=== PATIENT | male | born 1940 | race Caucasian/White ===

== ENCOUNTER → 2017-09-11 | Outpatient (CLI) | payer MEDICARE, BC ==
[~2017-09-11] MED LIST: ASPI-496 PO; OXYC5CAP2 PO; TAMS0.4C2 PO
[2017-09-11 15:47] LABS: HEMATOCRIT 45.2 % (39.2-51.8); HEMOGLOBIN 15.2 g/dL (13.7-18.0); WHITE BLOOD COUNT 4.8 x10^3/uL (3.4-10)
[2017-09-11 16:02] LABS: BLOOD UREA NITROGEN 30 mg/dL (7-18)
== END | disposition home or self-care (01) ==
LOC: STAR 14:51
PROVIDERS: ATTEND Orthopaedic Surgery
DX: Z01.818 Encounter for other preprocedural examination (principal); M17.12 Unilateral primary osteoarthritis, left knee
CPT/HCPCS: 36415; 80048; 81003; 85025; 87081; 93005